=== PATIENT | male | born 1980 | race American Indian/Alaskan Native ===

== ENCOUNTER 2021-10-04 12:35 | Emergency (ER) | payer MEDICAID ==
--- NOTE | 2021-10-04 12:49 | ED Physician Documentation ---
History of Present Illness - Stated complaint Stated Complaint: LT FACIAL NUMB - Additonal information Additional information: 41-year-old male who has a history of uncontrolled hypertension and type 2 diabetes presents to the emergency department for evaluation of left-sided fac ial droop and numbness. Symptoms began about 11:45 AM. Patient drove himself to the hospital. He reports watering of the left eye facial numbness. He has no slurred speech focal arm or leg weakness. No history of similar. Pt does Denies any recent illness cough cold congestion or fevers, though he did just complete some antibiotics for left leg cellulitis. States he does not take his BP or DM meds as he can not afford it due to cost. no hx here at [facility] Review of Systems Constitutional: denies: Fever, Chills Eyes: denies: Loss of vision Ears: reports: Reviewed and negative Cardiac: reports: Reviewed and negative Respiratory: reports: Reviewed and negative GI: reports: Abdominal Pain : reports: Reviewed and negative Skin: denies: Rash, Lesions Musculoskeletal: reports: Reviewed and negative Neurologic: reports: Focal weakness, Numbness. denies: Difficulty speaking, Head injury, LOC Psychiatric: reports: Reviewed and negative PD PAST MEDICAL HISTORY - Present Medications Home Medications: Ambulatory Orders Medication Instructions Recorded Confirmed Acyclovir 400 mg PO 5XD #50 tablet 10/04/21 Mineral Oil/Petrolatum,White 3.5 gm LEFTEYE TID #3.5 gm 10/04/21 [Lubricant Pm Eye Ointment] Telmisartan/Hydrochlorothiazid 1 each PO DAILY #30 tablet 10/04/21 [Micardis Hct 40-12.5 mg Tablet] glyBURIDE [Glyburide] 5 mg PO DAILY #30 tablet 10/04/21 predniSONE [Deltasone] 40 mg PO DAILY 5 Days #10 tablet 10/04/21 - Allergies Allergies/Adverse Reactions: Allergies Allergy/AdvReac Type Severity Reaction Status Date / Time amoxicillin [From Augmentin] Allergy Unknown Verified 10/04/21 12:43 clavulanic acid Allergy Unknown Verified 10/04/21 12:43 [From Augmentin] PD ED PE EXPANDED - General General: Alert, No acute distress - Cardiac Cardiac: Regular Rate, Radial strong equal, Cap refill < 2 sec. No: Murmur Pr esent - Respiratory Respiratory: Clear to ausultation dianne. No: Distress, Labored - Abdomen Abdomen: Normal Bowel sounds. No: Tender to palpation - Back Back: Normal exam, Normal ROM - Derm Derm: Normal color, Diaphoretic - Extremities Extremities: Normal. No: Deformity, Tenderness - Neuro Neuro: Alert and Oriented X 3, Left face (Partial sparing of the forehead. Extraocular movements intact. Left facial droop with numbness. Numbness of the left tongue. Normal speech.), Normal gait, Normal finger nose, Normal speech. No: CNII-XII intact, Aphasia, Dysarthria - GCS Eye Opening: Spontaneous Motor: Obeys Commands Verbal: Oriented Total: 15 Results - Vitals Vitals: Vital Signs - 24 hr 10/04/21 10/04/21 10/04/21 12:43 13:18 14:25 Temperature 36.5 C Heart Rate 100 92 96 Respiratory 16 17 20 Rate Blood Pressure 209/110 H 188/114 H 193/119 H O2 Saturation 98 95 94 10/04/21 15:17 Temperature Heart Rate 95 Respiratory 18 Rate Blood Pressure 199/100 H O2 Saturation 100 Oxygen O2 Source Room air - EKG (time done) 1238 Rate: Rate (enter#) (104) Rhythm: Sinus tachycardia Harned: Normal Intervals: Normal IN, Prolonged QT (inferior leads; old infarct) QRS: Normal Ischemia: Q waves Compare to prior EKG: Old EKG unavailable Computer interpretation: Agree with computer - Labs Labs: Laboratory Tests 10/04/21 10/04/21 10/04/21 12:44 12:45 12:45 WBC 10.4 RBC 6.08 Hgb 17.8 Hct 50.2 MCV 82.6 MCH 29.3 MCHC 35.5 RDW 12.4 Plt Count 286 MPV 9.9 Neut # (Auto) 6.6 Lymph # (Auto) 2.7 [place] # (Auto) 0.7 Eos # (Auto) 0.2 Baso # (Auto) 0.1 Absolute Nucleated RBC 0.00 Nucleated RBC % 0.0 PT 12.4 INR 1.1 Sodium 133 L Potassium 3.5 Chloride 95 L Carbon Dioxide 26 Anion Gap 12.0 BUN 17 Creatinine 0.8 Estimated GFR (MDRD) 106 Glucose 364 H POC Whole Bld Glucose Calcium 10.2 Total Bilirubin 1.2 H AST 21 ALT 32 Alkaline Phosphatase 67 Troponin I High Sens Total Protein 7.9 Albumin 4.5 Globulin 3.4 Albumin/Globulin Ratio 1.3 Lipase 31 TSH 10/04/21 10/04/21 10/04/21 12:45 12:45 15:15 WBC RBC Hgb Hct MCV MCH MCHC RDW Plt Count MPV Neut # (Auto) Lymph # (Auto) [place] # (Auto) Eos # (Auto) Baso # (Auto) Absolute Nucleated RBC Nucleated RBC % PT INR Sodium Potassium Chloride Carbon Dioxide Anion Gap BUN Creatinine Estimated GFR (MDRD) Glucose POC Whole Bld Glucose 345 H Calcium Total Bilirubin AST ALT Alkaline Phosphatase Troponin I High Sens 10.7 Total Protein Albumin Globulin Albumin/Globulin Ratio Lipase TSH 0.73 - Rads (name of study) CTA head/neck Radiology: Final report received (No acute intracranial process. No areas of hemodynamically significant stenosis vascular occlusion aneurysmal dilation within the posterior or anterior circulation or neck vasculature.) PD MEDICAL DECISION MAKING - ED course Complexity details: reviewed results, re-evaluated patient, considered differential, d/w patient, d/w building consultant ([facility]) ED course: 41-year-old male who has a history of hypertension and diabetes for which he is not taking medications due to cost presents to the emergency department with acute onset left-sided facial droop numbness that began at 11:15 AM. He drove himself here to the hospital. He presents with normal speech and no motor deficits but has pronounced left-sided facial droop with some mild forehead sparing. We did initiate stroke protocol and sent him immediately to the CT scanner. Initial NIHSS score of 3 for facial droop only. Pt presents with only partial forehead sparing, so unclear if this is a central or peripheral lesion. Initial blood pressure markedly elevated 209/110 but on return from CAT scan down to 188/114. At 13[address] Dr[address] Pollock neurologist on-call with telestroke and she has begun her initial evaluation with the patient in the room on the monitor 1340: I have spoken with Dr. 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 Reassuringly the CT angios of his head and neck are negative. I did spend more time speaking with the patient about the diagnosis of developed Machado's palsy and his poorly controlled diabetes with a blood glucose here of 364. States that he cannot take Metformin due to lactic acidosis. He was taking Onglyza but has not taken it for about 2 months since moving to [facility] where he cannot afford the prescription and does not have a doctor. He is unsure what he takes for his hypertension. The recommendation of neurology was to also place the patient on prednisone as well as valacyclovir or Acyclovir for 1 week to general maintenance helper in the recovery from Machado's palsy. We do note that the patient has uncontrolled diabetes but no findings to suggest DKA. He has been out of his Onglyza for 2 months. Patient was seen by registration as well as social work. He has been registered for the affordable care act. I did discuss with our [facility] pharmacist and the prescriptions for glyburide, acyclovir, prednisone, Lacri-Lube and Micardis were sent to the pharmacy and should be able to be filled today. I discussed with the patient that is important he establish care with a primary care provider. I have given him the phone number for [facility] to follow-up this urgent ER visit. He does have a glucometer at home and as he will be taking prednisone he is advised to return to the ER if he has blood sugars higher than 500. - Critical Care Time(min): 15 Time Includes: Direct patient care, Review records, Reassess patient, Document care, Coordinate care (Initial evaluation for acute stroke symptoms. 15 minutes of critical care time due to initial evaluation and coordination with neurologist and teleneurologist) Departure - Departure Disposition: 01 Home, Self Care Clinical Impression: Facial paralysis/Laurens palsy, Poorly controlled diabetes mellitus Hypertension Qualifiers: Hypertension type: primary hypertension Qualified Code(s): I10 - Essential (primary) hypertension Condition: Stable Record reviewed to determine appropriate education?: Yes Instructions: ED Laurens Palsy Follow-Up: Mikie Staley DO [Provider Admit Priv/Credential] - Prescriptions: Acyclovir 400 mg PO 5XD #50 tablet predniSONE [Deltasone] 40 mg PO DAILY 5 Days #10 tablet glyBURIDE [Glyburide] 5 mg PO DAILY #30 tablet Mineral Oil/Petrolatum,White [Lubricant Pm Eye Ointment] 3.5 gm LEFTEYE TID #3.5 gm Telmisartan/Hydrochlorothiazid [Micardis Hct 40-12.5 mg Tablet] 1 each PO DAILY #30 tablet Comments: Brando pelayo came to the ER today with uncontrolled high blood pressure and diabetes. You had sudden drooping of your left face. 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 This is when the facial nerve gets inflamed typically due to a virus. To treat the Machado's palsy and ensure that the facial movement returns it is important that you take the prednisone 40 mg daily for the next 5 days. Acyclovir is an antiviral medication that you must take 5 times a day for 10 days. I have started you on glyburide. This is a sulfonylurea a medication to treat your blood sugars. I have also renewed your Micardis. Because you are on steroids now you may find that your blood sugars are elevated. If your blood sugars are higher than 500 at home you must return immediately to the ER. Please stay well-hydrated. Long-term follow-up with a primary care provider is going to be very important. Please call the [place] [facility] to arrange follow-up within the next few weeks. Discharge Date/Time: 10/04/21 15:50 NIHSS - Time Time: 12:55 - Level of Consciousness Level of consciousness: (0) Alert, Keenly responsive LOC Questions: (0) Answers both Q's correct LOC Commands: (0) Performs both correctly - Gaze Best Gaze: (0) Normal - Visual Visual: (0) No loss - Facial Palsy Facial Palsy: (3) Complete paralysis - Motor Arms (both separate) Motor Arm (right): (0) No drift Motor Arm (left): (0) No drift - Motor Legs (both separate) Motor Leg (right): (0) No drift Motor Leg (left): (0) No drift - Limb Ataxia Limb Ataxia: (0) Absent - Sensory Sensory: (0) Normal - Best Language Best Language: (0) No aphasia - Dysarthria Dysarthria: (0) Normal - Extinction and Inattention (formally neg Extinction and inattention: (0) No abnormality - Total Score/Results Total Score/Result: 3
--- NOTE | 2021-10-04 12:58 | XRAY Report ---
PROCEDURE: Chest 1 View X-Ray INDICATIONS: Chest Pain TECHNIQUE: One view of the chest was acquired. COMPARISON: None FINDINGS: Surgical changes and devices: None. Lungs and pleura: No pleural effusions or pneumothorax. Lungs are clear. Mediastinum: Mediastinal contours appear normal. Heart size is normal. Bones and chest wall: No suspicious bony lesions. Overlying soft tissues appear unremarkable. IMPRESSION: No acute cardiopulmonary findings Reviewed by: Wilmra Banda MD on 10/04/2021 11:56 AM JOSE LUIS Approved by: Wilmar Banda MD on 10/04/2021 11:56 AM JOSE LUIS Station ID: [id number]
[2021-10-04] MEDS ORDERED: IOVERSOL 320 100 ML VIAL IVP ONE ×2 (13:12→13:16)
[2021-10-04 13:19] LABS: ALBUMIN 4.5 g/dL (3.2-5.5); ALBUMIN/GLOBULIN RATIO 1.3 (1.0-2.2); BILIRUBIN,TOTAL 1.2 mg/dL (0.2-1.0); CALCIUM 10.2 mg/dL (8.5-10.3); CREATININE 0.8 mg/dL (0.6-1.2); POTASSIUM 3.5 mmol/L (3.5-5.0); TOTAL PROTEIN 7.9 g/dL (6.7-8.2)
[2021-10-04 13:23] LABS: BASOPHILS # (AUTO) 0.1 10^3/uL (0.0-0.1); BASOPHILS % (AUTO) 0.5 %; EOSINOPHILS # (AUTO) 0.2 10^3/uL (0.0-0.7); EOSINOPHILS % (AUTO) 1.5 %; HCT - HEMATOCRIT 50.2 % (42.0-52.0); HGB - HEMOGLOBIN 17.8 g/dL (14.0-18.0); LYMPHOCYTES # (AUTO) 2.7 10^3/uL (1.5-3.5); LYMPHOCYTES % (AUTO) 26.3 %; MEAN CORPUSCULAR HEMOGLOBIN 29.3 pg (27.0-31.0); MEAN CORPUSCULAR HGB CONC 35.5 g/dL (32.0-36.0); MEAN CORPUSCULAR VOLUME 82.6 fL (80.0-94.0); MEAN PLATELET VOLUME 9.9 fL (7.4-11.4); MONOCYTES # (AUTO) 0.7 10^3/uL (0.0-1.0); MONOCYTES % (AUTO) 6.4 %; NEUTROPHILS # (AUTO) 6.6 10^3/uL (1.5-6.6); NEUTROPHILS % (AUTO) 63.8 %; PLT - PLATELET COUNT 286 10^3/uL (130-450); RED BLOOD COUNT 6.08 10^6/uL (4.70-6.10); RED CELL DISTRIBUTION WIDTH 12.4 % (12.0-15.0); WHITE BLOOD COUNT 10.4 x10^3/uL (4.8-10.8)
--- NOTE | 2021-10-04 13:26 | CT Report ---
PROCEDURE: ANGIO HEAD W/WO INDICATIONS: L sided facial droop CONTRAST: IV CONTRAST: Optiray 320 ml: 80 PO CONTRAST: *NO PO CONTRAST TECHNIQUE: Precontrast 4.5 mm thick angled axial sections acquired from the foramen magnum to the vertex. Afte r the administration of intravenous contrast, 1 mm thick sections acquired through the [place] of [place] is. Postcontrast 4.5 mm thick sections then re-acquired from the foramen magnum to the vertex. 3-di mensional veveoxq-imrrxyhff-qqsiwtyoin (MIP) and/or volume rendering reformats were acquired of the c entral intracranial vasculature. For radiation dose reduction, the following was used: automated ex posure control, adjustment of mA and/or kV according to patient size. COMPARISON: CT angiogram neck for 10/04/21 FINDINGS: Image quality: Excellent. Anterior circulation: Intracranial internal carotid arteries are normal in size and flow. The flow within the paired anterior cerebral arteries is normal and symmetric. The flow within the middle cer ebral arteries is normal and symmetric. The anterior communicating artery is seen. No aneurysms are seen. Posterior circulation: Visualized portions of the vertebral arteries demonstrate normal caliber, and join to form a normal appearing basilar artery. Flow within the posterior cerebral arteries is norm al and symmetric. No aneurysms are seen. CSF spaces: Ventricles are normal in size and shape. Basal cisterns are patent. No extra-axial flu id collections. Brain: No midline shift. No intracranial bleeds or masses. Munoz-white matter interface appears int act. Skull and face: Calvarium and facial bones appear intact, without suspicious lesions. Sinuses: Visualized sinuses and mastoids are clear. IMPRESSION: 1. No acute intracranial process. 2. No areas of hemodynamically significant stenosis, vascular occlusion or aneurysmal dilation within the anterior circulation. 3. No areas of hemodynamically significant stenosis, vascular occlusion or aneurysmal dilation within the posterior circulation. Reviewed by: Queenie Perez MD on 10/04/2021 1:24 PM PDT Approved by: Queenie Perez MD on 10/04/2021 1:24 PM PDT Station ID: [id number]
--- NOTE | 2021-10-04 13:29 | CT Report ---
PROCEDURE: ANGIO NECK W INDICATIONS: L sided facial droop, L neck pain CONTRAST: IV CONTRAST: Optiray 320 ml: 80 PO CONTRAST: *NO PO CONTRAST TECHNIQUE: After the administration of intravenous contrast, 1.5 mm axial sections acquired from the aortic arch to the [place] of [place]. Coronal 3-D maximum intensity projection (MIP) and/or volume rendering ref ormats were then performed. For radiation dose reduction, the following was used: automated exposur e control, adjustment of mA and/or kV according to patient size. COMPARISON: CTA head 10/04/2021 FINDINGS: Image quality: Excellent. Carotid system: The great vessels demonstrate a conventional anatomy as they arise from the aortic a rch. The origins of the common carotid arteries appear patent. The common carotid arteries demonstr ate normal calibers and courses. The bifurcation regions appear normal bilaterally. The internal ca rotid arteries demonstrate normal caliber and course. Posterior circulation: The origins of the vertebral arteries appear patent. The more superior porti ons of the vertebral arteries demonstrate normal course and caliber. They join to form a normal appe aring basilar artery. There is a slight left vertebral artery dominance. Soft tissues: Visualized neck soft tissues demonstrate no suspicious abnormalities. The thyroid is normal in size and there are no incidental findings. Bones: No suspicious bony lesions. Visualized cervical spine appears normally aligned. IMPRESSION: There are no areas of hemodynamically significant stenosis, vascular occlusion or aneurysmal dilation within the neck vasculature. The estimate of stenosis included in the report of the imaging study was calculated using the NASCET method CLINICAL RECOMMENDATION STATEMENTS: In patients <35 years with an ITN detected on CT, MRI, or extrathyroidal ultrasound, the Committee re commends further evaluation with dedicated thyroid ultrasound if the nodule is "e1 cm and has no susp icious imaging features, and if the patient has normal life expectancy. In patients "e35 years with an ITN detected on CT, MRI, or extrathyroidal ultrasound, the Committee r ecommends further evaluation with dedicated thyroid ultrasound if the nodule is "e1.5 cm and has no s uspicious imaging features, and if the patient has normal life expectancy. (ACR, 2014) Reviewed by: Queenie Perez MD on 10/04/2021 1:27 PM PDT Approved by: Queenie Perez MD on 10/04/2021 1:27 PM PDT Station ID: [id number]
[2021-10-04] MEDS ORDERED: SODIUM CHLORIDE 0.9% 1,000 ML IV STA (13:52)
[2021-10-04] MEDS ORDERED: INSULIN REGULAR HUMAN 100 UNIT/1 ML 10 ML MDV IVP STA ×2 (13:52→15:19)
[2021-10-04 13:56] LABS: INR 1.1 (0.8-1.2); PT - PROTHROMBIN TIME 12.4 secs (9.9-12.6)
[2021-10-04] MEDS ORDERED: predniSONE 20 MG TABLET PO STA (13:57)
[2021-10-04] MEDS ORDERED: valACYclovir 500 MG TABLET PO SCH (14:00)
[2021-10-04 15:17] VITALS: BP 199/100
== END 2021-10-04 15:50 | disposition home or self-care (01) ==
LOC: ED 12:35
DX: G51.0 Bell's palsy (principal); E11.65 Type 2 diabetes mellitus with hyperglycemia; I10 Essential (primary) hypertension
CPT/HCPCS: 36415; 70496; 70498; 71045; 80053; 83690; 84443; 84484; 85025; 85610; 93005; 99284; A9270; J1815; J7512; Q9967